=== PATIENT | female | born 1960 ===

== ENCOUNTER 2018-02-01 14:32 | Outpatient (CLI) | payer OTHER ==
--- NOTE | 2018-02-01 15:46 | RAD ---
RIGHT HAND THREE VIEWS: History: Right hand pain. FINDINGS/IMPRESSION: Carpals appear unremarkable. Metacarpals are intact. Phalanges are intact. There are moderate degenerative changes at the IP joint of the thumb with joint narrowing and spurring. Mild narrowing of the first MCP joint also noted. 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 No fracture or acute abnormality. POS: [facility]
== END 2018-02-01 14:33 | disposition home or self-care (01) ==
LOC: NAV RAD 14:32
PROVIDERS: ATTEND Family Medicine
DX: M79.641 Pain in right hand (principal); M19.041 Primary osteoarthritis, right hand; M25.841 Other specified joint disorders, right hand; M18.11 Unilateral primary osteoarthritis of first carpometacarpal joint, right hand